=== PATIENT | female | born 1960 | race American Indian/Alaskan Native ===

== ENCOUNTER 2021-12-24 12:08 | Emergency (ER) | payer OTHER ==
[2021-12-24] MEDS ORDERED: MORPHINE 4 MG/1 ML INJ IV ONE (12:53)
[2021-12-24] MEDS ORDERED: ONDANSETRON 4 MG/2 ML INJ IV ONE (12:53)
--- NOTE | 2021-12-24 12:56 | Emergency Department Report ---
ED Shortness of Breath HPI - General Chief Complaint: Dyspnea/Respdistress Stated Complaint: ASTHMA/BACK PAIN Time Seen by Provider: 12/24/21 12:40 Source: patient Mode of arrival: Ambulatory Limitations: No Limitations - History of Present Illness Initial Comments: Patient is 61 years old female with history of hypertension diabetes and asthma. Patient brought to the emergency room accompanied by her daughter for evaluation of right posterior chest pain and right flank pain since this morning. Patient stated that she is unable to stretch her back. She also indicated that she is having some shortness of breath. She also reported cough but no fever or chills. Patient stated that she is Covid 19 vaccinated x3. Complaint: shortness of breath - Related Data Allergies Allergy/AdvReac Type Severity Reaction Status Date / Time No Known Allergies Allergy Unverified 12/24/21 12:30 ED Review of Systems ROS: Stated complaint: ASTHMA/BACK PAIN Other details as noted in HPI Comment: All other systems reviewed and negative Constitutional: denies: chills, fever Respiratory: cough, shortness of breath, SOB with exertion Cardiovascular: denies: chest pain, palpitations Gastrointestinal: denies: abdominal pain, nausea, vomiting Musculoskeletal: back pain Neurological: denies: headache, weakness, numbness, paresthesias, confusion ED Physical Exam - General Limitations: No Limitations General appearance: alert, in no apparent distress - Head Head exam: Present: atraumatic, normocephalic, normal inspection - Eye Eye exam: Present: normal appearance - ENT ENT exam: Present: normal exam, normal orophraynx, mucous membranes moist - Neck Neck exam: Present: normal inspection, full ROM. Absent: tenderness, meningismus - Respiratory Respiratory exam: Present: normal lung sounds bilaterally - Cardiovascular Cardiovascular Exam: Present: regular rate, normal rhythm, normal heart sounds - GI/Abdominal GI/Abdominal exam: Present: soft, normal bowel sounds. Absent: distended, tenderness, guarding, rebound, rigid, mass, bruit, pulsatile mass, hernia - Extremities Exam Extremities exam: Present: normal inspection, full ROM, normal capillary refill. Absent: pedal edema, calf tenderness - Back Exam Back exam: Present: normal inspection, full ROM. Absent: CVA tenderness (R), CVA tenderness (L) - Neurological Exam Neurological exam: Present: alert, oriented X3, CN II-XII intact, normal gait, reflexes normal - Psychiatric Psychiatric exam: Present: normal mood - Skin Skin exam: Present: warm, intact, normal color ED Course Vital Signs 12/24/21 12:33 Temperature 98.3 F Pulse Rate 75 Respiratory 18 Rate Blood Pressure 111/71 [Right] O2 Sat by Pulse 99 Oximetry ED Medical Decision Making - Lab Data Result diagrams: 12/24/21 13:11 12/24/21 13:11 - Radiology Data Radiology results: report reviewed - Medical Decision Making Patient is 61 years old female with history of hypertension diabetes and asthma. Patient brought to the emergency room accompanied by her daughter for evaluat ion of right posterior chest pain and right flank pain since this morning. Patient stated that she is unable to stretch her back. She also indicated that she is having some shortness of breath. She also reported cough but no fever or chills. Patient stated that she is Covid 19 vaccinated x3. Patient received morphine and Zofran. Patient stated the pain is better. Labs reviewed and is unremarkable except for significant UTI. D-dimer also elevated. Patient had a CTA chest with no evidence of PE or any other pathology. Patient given prescription for ciprofloxacin and advised to follow-up with her primary doctor in the next 2 to 3 days and to return to the ER if she develop any new symptoms. Critical care attestation.: If time is entered above; I have spent that time in minutes in the direct care of this critically ill patient, excluding procedure time. ED Disposition Clinical Impression: Right flank pain, UTI (urinary tract infection) Disposition: 01 HOME / SELF CARE / HOMELESS Is pt being admited?: No Condition: Stable Instructions: Flank Pain, Adult, [id number], Urinary Tract Infection, Adult, [id number] Referrals: CHELO GARCÍA MD [Primary Care Provider] - 3-5 Days
--- NOTE | 2021-12-24 13:33 | XRay Report ---
CHEST 2 VIEWS INDICATION / CLINICAL INFORMATION: Dyspnea. COMPARISON: None available. FINDINGS: SUPPORT DEVICES: None. HEART / MEDIASTINUM: No significant abnormality. LUNGS / PLEURA: No significant pulmonary or pleural abnormality. No pneumothorax. ADDITIONAL FINDINGS: No significant additional findings. IMPRESSION: 1. No acute findings. Signer Name: Ritesh Moura MD Signed: 12/24/2021 1:28 PM Workstation Name: [id number]
[2021-12-24 13:39] LABS: Basophils # (Auto) 0.1 K/mm3 (0.0-0.1); Basophils % (Auto) 2.1 % (0.0-1.8); Eosinophils % (Auto) 0.5 % (0.0-4.3); Hematocrit 42.5 % (30.3-42.9); Hemoglobin 13.9 gm/dl (10.1-14.3); Lymphocytes # (Auto) 1.7 K/mm3 (1.2-5.4); Lymphocytes % (Auto) 32.3 % (13.4-35.0); Mean Corpuscular HGB Conc 33 % (30-34); Mean Corpuscular Volume 97 fl (79-97); Monocytes # (Auto) 0.4 K/mm3 (0.0-0.8); Monocytes % (Auto) 7.2 % (0.0-7.3); Platelet Count 141 K/mm3 (140-440); Red Blood Count 4.36 M/mm3 (3.65-5.03); Red Cell Distribution Width 14.2 % (13.2-15.2)
[2021-12-24 13:47] LABS: INR 0.86 (0.87-1.13)
[2021-12-24 13:57] LABS: Blood Urea Nitrogen 13 mg/dL (7-17); Hemolysis Index 18
[2021-12-24 14:00] LABS: BUN/Creatinine Ratio 19
[2021-12-24 14:03] LABS: Alanine Aminotransferase 26 units/L (7-56); Albumin 4.7 g/dL (3.9-5)
[2021-12-24 14:07] LABS: Bilirubin,Direct < 0.2 mg/dL (0-0.2)
[2021-12-24 16:15] LABS: Bacteria,Urine 2+ /HPF (Negative); Bilirubin,Urine NEG (Negative); Blood,Urine MOD (Negative); Color,Urine Yellow (Yellow); Mucus,Urine FEW /HPF; Urobilinogen,Urine < 2.0 mg/dL (<2.0)
[2021-12-24] MEDS ORDERED: cefTRIAXone/NS 1 GM/50 ML 1 GM/50 ML BAG IV ONE (16:37)
--- NOTE | 2021-12-24 16:45 | Cat Scan Report ---
CTA CHEST WITH CONTRAST INDICATION / CLINICAL INFORMATION: CHEST PAIN WITH D-DIMER ELEVATED. TECHNIQUE: Axial CT images were obtained through the chest after injection of IV contrast. 3 plane MT P and/or 3D reconstructions were produced. All CT scans at this location are performed using CT dose reduction for ALARA by means of automated exposure control. COMPARISON: None available. FINDINGS: PULMONARY EMBOLUS: None. THORACIC AORTA: No significant abnormality. HEART: No significant abnormality. CORONARY ARTERY CALCIFICATION: Absent -- None. MEDIASTINUM / ALETA: No significant abnormality. PLEURA: No pleural effusion. No pneumothorax. LUNGS: No acute air space or interstitial disease. ADDITIONAL FINDINGS: None. UPPER ABDOMEN: No acute findings. SKELETAL STRUCTURES: No significant osseous abnormality. IMPRESSION: 1. No CT evidence for pulmonary embolism. 2. No acute findings. Signer Name: Harry Russell MD Signed: 12/24/2021 4:40 PM Workstation Name: [id number]
[2021-12-24 18:01] VITALS: BP 149/87
--- NOTE | 2021-12-25 10:02 | Electrocardiograph Report ---
[facility] Test Date: 2021-12-24 Test Time: 15:27:47 Pat Name: SHANKAR MURPHY Department: Room: Gender: F Travel Professional: FELICITAS : 1960 Requested By: RAGHAVENDRA FELIX Order Number: [id number] Reading MD: Jose Burns Measurements Intervals [place] Rate: 60 P: -63 DC: 129 QRS: -39 QRSD: 91 T: 58 QT: 417 QTc: 417 Interpretive Statements Sinus or ectopic atrial rhythm Left axis deviation Nonspecific T abnrm, anterolateral leads No previous ECG available for comparison Electronically Signed On 12-25-2021 10:01:46 EST by Jose Burns
== END 2021-12-24 18:00 | disposition home or self-care (01) ==
LOC: ED 12:08
DX: R10.31 Right lower quadrant pain (principal); N39.0 Urinary tract infection, site not specified
CPT/HCPCS: 36415; 71046; 71275; 80048; 80076; 81001; 83880; 85025; 85379; 85610; 85730; 93005; 93010; 96365; 96375; 99284; J0696; Q9967